=== PATIENT | female | born 1990 | race Hispanic/Latino ===

== ENCOUNTER 2017-09-01 22:27 | Emergency (ER) | payer OTHER ==
[~2017-09-01] VITALS: Ht 152.4 cm; Wt 108.9 kg
[2017-09-02 01:29] LABS: ABSOLUTE BASOPHIL COUNT 0 /CUMM (0.0-0.2); ABSOLUTE EOSINOPHIL COUNT 0.1 /CUMM (0.0-0.7); ABSOLUTE LYMPH COUNT 1.9 /CUMM (1.2-3.4); ABSOLUTE MONOCYTE COUNT 0.3 /CUMM (0.10-0.60); BASOPHIL % 0.3 % (0.0-2.0); EOSINOPHIL % 1.4 % (0-5); GRANULOCYTE % 71.7 % (42.2-75.2); HEMATOCRIT 33.6 % (37-47); MEAN CORPUSCULAR HGB 21.6 PG (27.0-31.0); MEAN CORPUSCULAR HGB CONC 32.5 G/DL (33.0-37.0); MEAN CORPUSCULAR VOLUME 66.5 FL (81.0-99.0); PLATELET COUNT 278 /CUMM (130-400); RBC DISTRIBUTION WIDTH 17.8 % (11.5-14.5); RED BLOOD CELL CT 5.05 /CUMM (4.20-5.40); WHITE BLOOD CELL COUNT 8.4 /CUMM (4.8-10.8)
--- NOTE | 2017-09-02 01:55 | ED GI/GU/ABDOMINAL COMPLAINT ---
History of Present Illness General Chief Complaint: Abdominal Pain/Flank Pain Stated Complaint: ABD PAIN +NAUSEA X1 DAY Source: patient, old records Exam Limitations: no limitations Vital Signs & Intake/Output Vital Signs & Intake/Output Vital Signs Date Time Temp Pulse Resp B/P B/P Pulse O2 O2 Flow FiO2 Mean Ox Delivery Rate 09/02 0108 78 18 135/78 99 Room Air 09/01 2244 98.4 85 20 120/83 98 Room Air ED Intake and Output 09/02 0000 09/01 1200 Intake Total Output Total Balance Patient 240 lb Weight Weight Reported by Patient Measurement Method Allergies Coded Allergies: No Known Allergies (09/02/17) Reconcile Medications Cephalexin (Keflex) 500 MG CAPSULE 1 CAP PO TID uti Hyoscyamine Sulfate (Levsin-Sl) 0.125 MG TAB.SUBL 1-2 TAB SL Q4P PRN abdominal pain Ondansetron (Zofran Odt) 4 MG TAB.RAPDIS 1 TAB SL TID PRN nausea Phenazopyridine HCl (Pyridium) 200 MG TABLET 1 TAB PO TID PRN dysuria Triage Note: PT HERE WITH C/O SHARP ABD PAIN , POINTS TO EPIGASTRIC AREA. PT REPORTS SHE ONLY HAD COFFEE THIS AM WHEN THE PAIN BEGAN AND THOUGHT SHE WAS JUST HUNGRY. PT THEN ATE AND FELT THE PAIN WAS GETTING WORSE. PT HAS N/-V/-D. PT REPORTS PAIN TO BACK ALSO AND FEELSLIKE SHE IS STARTING TO GET A UTI. Triage Nurses Notes Reviewed? yes LMP (ages 10-50): unknown ? n Is pt currently ? No Onset: 4 days Duration: day(s):, constant, continues in ED Timing: recent history Quality/Severity: cramping, moderate Location: epigastric Radiation: no radiation Activities at Onset: rest Prior Abdominal Problems: none Past Sexual History: Unobtainable at this time Modifying Factors: Worsens With: eating. Associated Symptoms: abdominal pain, dysuria, loss of appetite, nausea/vomiting HPI: 4 days prior to admission patient complains of dysuria frequency decreased appetite. 1 day prior to admission she complains of epigastric aching increasing severity nonradiating with nausea constant worse with eating. She denies fever chills vomiting diarrhea chest pain cough shortness of breath headache rash bleeding . Past History Travel History Traveled to [place] past 21 day No Medical History Any Pertinent Medical History? 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 No Review of Systems Review of Systems Constitutional: Reports: see HPI, malaise. EENTM: Reports: no symptoms. Respiratory: Reports: no symptoms. Cardiovascular: Reports: no symptoms. GI: Reports: see HPI, abdominal pain, nausea. Genitourinary: Reports: see HPI, dysuria, frequency. Musculoskeletal: Reports: no symptoms. Skin: Reports: no symptoms. Neurological/Psychological: Reports: no symptoms. Hematologic/Endocrine: Reports: no symptoms. Immunologic/Allergic: Reports: no symptoms. All Other Systems: Reviewed and Negative Physical Exam Physical Exam General Appearance: well developed/nourished, alert, awake, anxious, mild distress, obese Head: atraumatic, normal appearance Eyes: Bilateral: normal appearance, PERRL, EOMI, normal inspection. Ears, Nose, Throat, Mouth: hearing grossly normal, moist mucous membrane Neck: normal inspection, supple, full range of motion, normal alignment Respiratory: normal breath sounds, chest non-tender, no respiratory distress, quiet respiration, lungs clear Cardiovascular: regular rate/rhythm, normal peripheral pulses, norml femoral pulses equa Peripheral Pulses: 4+ carotid (R), 4+ carotid (L) Gastrointestinal: normal bowel sounds, soft, non-tender, no organomegaly Back: normal inspection, normal range of motion Extremities: normal range of motion, no ligament instability Neurologic/Psych: no motor/sensory deficits, awake, alert, oriented x 3, normal gait, normal 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 No Sepsis Present: No Sepsis Focused Exam Completed? No Progress Differential Diagnosis: biliary colic, gastritis, pancreatitis, peptic ulcer, PUD/GERD, UTI/pyelo Plan of Care: Orders Procedure Date/time Status Add-on Test (ER Only) 09/02 0145 Active LIPASE 09/02 0115 Complete URINALYSIS 09/02 109 Complete COMPREHENSIVE METABOLIC PANEL 09/02 109 Complete CBC WITHOUT DIFFERENTIAL 09/02 109 Complete Current Medications Sig/Thelma Start time Last Medication Dose Stop Time Status Admin Ceftriaxone Sodium 1,000 MG ONCE ONE 09/02 244 UNVr 09/02 (Rocephin) 09/02 Phenazopyridine HCl 200 MG ONCE ONE 09/02 244 UNVr (Pyridium) 09/02 245 Laboratory Tests 09/02/17 0120: Urinalysis LIGHT H, Urine Color YEL, Urine Clarity CLEAR, Urine pH 7.0, Ur Specific [place] 1.015, Urine Protein NEG, Urine Ketones NEG, Urine Nitrite NEG, Urine Bilirubin NEG, Urine Urobilinogen 4.0 H, Ur Leukocyte Esterase MOD H, Ur Microscopic SEDIMENT EXAMINED, Urine RBC 3-5, Urine WBC 5-10 H, Ur Epithelial Cells FEW, Urine Bacteria MANY H, Urine Hemoglobin NEG, Urine Glucose NEG 09/02/17114: Anion Gap 9, Estimated GFR > 60, BUN/Creatinine Ratio 24.3, Glucose 122 H, Calcium 8.7, Total Bilirubin 1.1, AST 18, ALT 26, Alkaline Phosphatase 117, Total Protein 6.7, Albumin 3.7, Globulin 3.0, Albumin/Globulin Ratio 1.2, Lipase 74, CBC w Diff NO MAN DIFF REQ, RBC 5.05, MCV 66.5 L, MCH 21.6 L, MCHC 32.5 L , RDW 17.8 H, MPV 8.0, Gran % 71.7, Lymphocytes % 22.5, Monocytes % 4.1, Eosinophils % 1.4, Basophils % 0.3, Absolute Granulocytes 6.0, Absolute Lymphocytes 1.9, Absolute Monocytes 0.3, Absolute Eosinophils 0.1, Absolute Basophils 0 Initial ED EKG: none Departure Departure Time of Disposition: 240 Disposition: HOME OR SELF CARE Condition: Stable Clinical Impression Primary Impression: UTI (urinary tract infection) Secondary Impressions: Epigastric abdominal pain, Nausea Referrals: David TSE,Davide Kenny (PCP/Family) Departure Forms: Customer Survey General Discharge Information RELEASE- WORK Prescriptions: Current Visit Scripts Cephalexin (Keflex) 1 CAP PO TID #21 CAP Phenazopyridine HCl (Pyridium) 1 TAB PO TID PRN dysuria #9 TAB Ondansetron (Zofran Odt) 1 TAB SL TID PRN nausea #10 TAB Hyoscyamine Sulfate (Levsin-Sl) 1-2 TAB SL Q4P PRN abdominal pain #30 TAB
[2017-09-02] MEDS ORDERED: ZOFRAN ODT4 M1 SL (02:44)
[2017-09-02] MEDS ORDERED: LEVSIN-SL0.125 MG SL (02:44)
[2017-09-02] MEDS ORDERED: KEFLEX500 M1 PO (02:44)
[2017-09-02] MEDS ORDERED: PYRIDIUM200 M1 PO (02:44)
[2017-09-02 02:49] VITALS: BP 24/78
== END 2017-09-02 02:51 ==
LOC: ERH 22:27
PROVIDERS: Emergency Medicine
DX: N39.0 Urinary tract infection, site not specified (principal); R10.13 Epigastric pain; R11.2 Nausea with vomiting, unspecified
CPT/HCPCS: 81001; 96361; 96374; 96375; J0131; J0696; J2765